=== PATIENT | female | born 1960 | race Hispanic/Latino ===

== ENCOUNTER 2022-11-04 00:58 | Day surgery (SDC) | payer OTHER, SELFPAY ==
[2022-10-20 10:47] VITALS: BMI 26.2
[2022-11-04 06:31] VITALS: BP 108/56; PULSE 111; RESP 18; TEMP 36.2; O2SAT 100; BMI 25.2
[2022-11-04] MEDS: LACTATED RINGERS 1,000 ML 150 ML IV CONT (06:43)
--- NOTE | 2022-11-04 07:26 | PM.HPGS ---
History of Present Illness History of Present Illness Consent: Risks, benefits, and alternatives have been discussed and questions answered. Patient agrees to proceed with procedure. Chief complaint: neoplasm screening Narrative: Odette Fenton is a 61 year old female Presents for a screening colonoscopy. Patient is . History is obtained with the assistance of her daughter. Patient is been in general good health and presents today for neoplasia screening colonoscopy. She reports that her weight appetite and bowel movements are normal. She denies abdominal pain. She has had no bleeding. Family history noncontributory. She does have a past medical history of breast cancer. Currently felt to be cured. Review of Systems Review of Systems: Review of systems noncontributory. [facility] Past Medical History Medical History (Updated 11/04/22 @ 07:28 by Earl Pedersen MD) Breast CA SCC (squamous cell carcinoma), ear Uterine fibroid Vitamin D deficiency Surgical History Surgical History H/O lumpectomy History of breast augmentation Hx of hysterectomy Family History Family History Mother Breast cancer Mother Family history of malignant neoplasm of breast in first degree relative Father Diabetes mellitus Patient's father is in good health Social History Social History (Updated 06/20/20 @ 08:29 by Rachel Blanchard CMA) Years smoked: 30 Smoking status: Current every day smoker Tobacco type: cigarettes Second hand tobacco smoke exposure: Yes Additional smoking assessment comments: 3-4 cigarettes/day Alcohol intake: current Alcohol use details: rare Substance use: never Substance use type: does not use Living arrangements: with family Occupation/Education: unemployed Gender identity (if verbalized by the patient): Female Spiritual care concerns: No Meds Home Medications and Allergies Home Medications Medication Instructions Recorded Confirmed Type calcium carbonate 500 mg-vitamin 1 tablet PO BID #180 tabs 08/01/20 10/20/22 Rx D3 5 mcg (200 unit) tablet Allergies Allergy/AdvReac Type Severity Reaction Status Date / Time No Known Allergies Allergy Verified 10/20/22 10:45 Vital Signs Vital Signs - 24 hr 11/04/22 06:31 Temperature 97.1 F L Pulse Rate 111 H Respiratory Rate 18 Blood Pressure 108/56 L Pulse Oximetry 100 Oxygen Delivery Room Air Exam Narrative: Physical exam reveals patient be alert. Vital signs stable. HEENT exam is unremarkable. Patient is anicteric. Lungs are clear to auscultation and percussion. Heart is without murmur or extra sounds. Abdomen bowel sounds are present soft nontender with no organomegaly. Digital external rectal exam is normal. Assessment and Plan Assessment and plan (1) Encounter for screening colonoscopy: Code(s): Z12.11 - Encounter for screening for malignant neoplasm of colon Status: Acute Assessment and Plan: Patient presents today for screening colonoscopy. She appears to be at average risk for colon polyps. Further recommendations may be given after endoscopy.
[2022-11-04 07:44] VITALS: BP 116/53; PULSE 58; RESP 23; O2SAT 98
[2022-11-04 07:54] VITALS: BP 107/46; PULSE 45; RESP 20; O2SAT 100
[2022-11-04 08:04] VITALS: BP 116/50; PULSE 46; RESP 18; O2SAT 100
--- NOTE | 2022-11-04 08:11 | SUR.PHASEII ---
DR PHAM MADE AWARE OF PT BRADYCARDIA, PT RUNNING HEART RATE IN THE 40'S, PT STATES THIS IS HER NORMAL, PT STATES SHE FEELS FINE AND IS NOT CONCERNED, NO NEW ORDERS, PT AND DAUGHTER EDUCATED ON HYDRATION AT HOME AND SAFETY AFTER SEDATION. STATES UNDERSTANDING.
== END 2022-11-04 08:26 | disposition home or self-care (01) ==
PROVIDERS: PCP Physician Assistant; Visit Provider Internal Medicine Gastroenterology
PROC: 0DJD8ZZ Inspection of Lower Intestinal Tract, Via Natural or Artificial Opening Endoscopic (ICD-10-PCS; CPT 45378; principal; 2022-11-04 07:30)
DX: Z12.11 Encounter for screening for malignant neoplasm of colon (principal); D25.9 Leiomyoma of uterus, unspecified; E55.9 Vitamin D deficiency, unspecified; F17.210 Nicotine dependence, cigarettes, uncomplicated; Z85.3 Personal history of malignant neoplasm of breast
CPT/HCPCS: 45378; J2704; J7120